=== PATIENT | male | born 1960 | race Caucasian/White ===

== ENCOUNTER 2022-05-23 13:36 | Inpatient (IN) | payer OTHER ==
[2022-05-23] MEDS ORDERED: SODIUM CHLORIDE 0.9% 500 ML 500 ML IV STA (13:40)
[2022-05-23] MEDS ORDERED: Alteplase PER PHARMACY Stroke 1 EACH MISC MISCELLANE PRN (13:45)
[2022-05-23] MEDS ORDERED: ALTEPLASE BOLUS FOR STROKE 8 MG in EMPTY SYRINGE 1 SYR IV STA (13:46)
[2022-05-23] MEDS ORDERED: ALTEPLASE 69 MG in EMPTY BAG 1 BAG IV STA (13:46)
--- NOTE | 2022-05-23 13:58 | CT ---
EXAMINATION TYPE: CT brain wo con for TPA DATE OF EXAM: 05/23/2022 COMPARISON: None HISTORY: Neuro deficit, acute, stroke suspected Unenhanced CT of the brain was performed. The ventricles, basal cisterns and sulci overlying the cerebral convexities demonstrate mild enlargem ent. Areas of remote insult left temporal lobe and left parietal lobe. There is no evidence for intracranial hemorrhage or sulcal effacement. There is decreased attenuation about the periventricular white matter and deep white matter of both c erebral hemispheres, compatible with chronic small vessel ischemia. Differential diagnosis does inclu de demyelination. No mass effects are seen.No midline shift. Osseous calvarium is intact. If symptoms persist consider MRI. IMPRESSION: 1. Age related atrophic and chronic small vessel ischemic change without acute intracranial process s een at this time.
--- NOTE | 2022-05-23 14:00 | ED ---
General Adult HPI - General Stated complaint: Stroke Time Seen by Provider: 05/23/22 13:37 Source: patient, family, EMS, RN notes reviewed, old records reviewed Mode of arrival: EMS Limitations: altered mental status - History of Present Illness Initial comments: 61-year-old male brought in as a priority one stroke activation or at her medics had reported that the patient had acute onset of expressive aphasia and dysarthria at 11:30 AM. Patient was taken immediately to computed tomography scan as a code alteplase. There was no history of medications given at the onset. There was a reported previous stroke history but the exact detail business were not known. After the patient's initial workup was started and I was able to obtain more history from the patient's daughter she's she states that his stroke symptoms are not new. That his speech is normally slurred and he is unable to communicate effectively with an expressive aphasia. He also has right hemiplegia. None of these symptoms are new. What is new today is that the patient was more agitated than usual. He had also complained of a headache. - Related Data Home Medications Medication Instructions Recorded Confirmed No Known Home Medications 05/23/22 05/23/22 Allergies Allergy/AdvReac Type Severity Reaction Status Date / Time No Known Allergies Allergy Unverified 05/23/22 15:33 Review of Systems ROS Statement: Those systems with pertinent positive or pertinent negative responses have been documented in the HPI. ROS Other: All systems not noted in ROS Statement are negative. Past Medical History Additional Past Medical History / Comment(s): CVA History of Any Multi-Drug Resistant Organisms: Unobtainable Past Surgical History: Unable to Obtain Past Psychological History: Unable to Obtain Smoking Status: Unknown if ever smoked Past Alcohol Use History: Unable to Obtain Past Drug Use History: Unable to Obtain General Exam Limitations: altered mental status General appearance: alert, in no apparent distress Head exam: Present: atraumatic, normocephalic Eye exam: Present: normal appearance, PERRL, EOMI ENT exam: Present: normal exam Neck exam: Present: normal inspection. Absent: tenderness, meningismus Respiratory exam: Present: normal lung sounds bilaterally. Absent: respiratory distress, wheezes Cardiovascular Exam: Present: regular rate, normal rhythm GI/Abdominal exam: Present: soft. Absent: distended, tenderness, guarding Neurological exam: Present: alert, motor sensory deficit (Right hemiplegia, expressive aphasia). Absent: oriented X3 Skin exam: Present: warm, dry, intact. Absent: cyanosis, diaphoretic Course Vital Signs 05/23/22 13:55 Temperature 99.3 F Pulse Rate 99 Respiratory 18 Rate Blood Pressure 181/116 O2 Sat by Pulse 94 L Oximetry EKG Findings - EKG Comments: EKG Findings:: EKG: Sinus tachycardia rate of 102, left axis, [place] interval 168, QRS duration 1:30, QTC [address] segment elevation. Medical Decision Making - Medical Decision Making 61-year-old male who is presented initially as a stroke activation. Upon further history from the daughter at the patient has prior stroke with unchanged deficits today. However she states she had been somewhat more agitated than usual. She states his speech is at baseline and is right hemiparesis is at baseline. Given the stability of these findings she is not a TPA candidate and his altered mental status and agitation may not be related to stroke at all. He does receive CT and CT angiography in the emergency department which showed old stroke without acute findings. CBC and CMP are unremarkable. Urinalysis is pending. Patient will benefit from admission for further evaluation and treatme nt. Case discussed with Dr. Aponte. - Lab Data Result diagrams: 05/23/22 14:18 05/23/22 14:18 Lab Results 05/23/22 05/23/22 05/23/22 Range/Units 14:18 14:18 14:18 WBC 10.5 (3.8-10.6) k/uL RBC 5.34 (4.30-5.90) m/uL Hgb 15.6 (13.0-17.5) gm/dL Hct 47.8 (39.0-53.0) % MCV 89.7 (80.0-100.0) fL MCH 29.1 (25.0-35.0) pg MCHC 32.5 (31.0-37.0) g/dL RDW 13.2 (11.5-15.5) % Plt Count 252 (150-450) k/uL MPV 7.9 Neutrophils % 74 % Lymphocytes % 15 % Monocytes % 5 % Eosinophils % 3 % Basophils % 1 % Neutrophils # 7.7 (1.3-7.7) k/uL Lymphocytes # 1.6 (1.0-4.8) k/uL Monocytes # 0.6 (0-1.0) k/uL Eosinophils # 0.4 (0-0.7) k/uL Basophils # 0.1 (0-0.2) k/uL PT 10.2 (9.0-12.0) sec INR 0.9 (<1.2) APTT 25.9 (22.0-30.0) sec Sodium 140 (137-145) mmol/L Potassium 3.5 (3.5-5.1) mmol/L Chloride 104 (98-107) mmol/L Carbon Dioxide 23 (22-30) mmol/L Anion Gap 13 mmol/L BUN 12 (9-20) mg/dL Creatinine 0.71 (0.66-1.25) mg/dL Est GFR (CKD-EPI)AfAm >90 (>60 ml/min/1.73 sqM) Est GFR (CKD-EPI)NonAf >90 (>60 ml/min/1.73 sqM) Glucose 140 H (74-99) mg/dL Calcium 8.7 (8.4-10.2) mg/dL Total Bilirubin 0.4 (0.2-1.3) mg/dL AST 24 (17-59) U/L ALT 19 (4-49) U/L Alkaline Phosphatase 88 (38-126) U/L Troponin I (0.000-0.034) ng/mL Total Protein 6.6 (6.3-8.2) g/dL Albumin 3.8 (3.5-5.0) g/dL 05/23/22 Range/Units 14:18 WBC (3.8-10.6) k/uL RBC (4.30-5.90) m/uL Hgb (13.0-17.5) gm/dL Hct (39.0-53.0) % MCV (80.0-100.0) fL MCH (25.0-35.0) pg MCHC (31.0-37.0) g/dL RDW (11.5-15.5) % Plt Count (150-450) k/uL MPV Neutrophils % % Lymphocytes % % Monocytes % % Eosinophils % % Basophils % % Neutrophils # (1.3-7.7) k/uL Lymphocytes # (1.0-4.8) k/uL Monocytes # (0-1.0) k/uL Eosinophils # (0-0.7) k/uL Basophils # (0-0.2) k/uL PT (9.0-12.0) sec INR (<1.2) APTT (22.0-30.0) sec Sodium (137-145) mmol/L Potassium (3.5-5.1) mmol/L Chloride (98-107) mmol/L Carbon Dioxide (22-30) mmol/L Anion Gap mmol/L BUN (9-20) mg/dL Creatinine (0.66-1.25) mg/dL Est GFR (CKD-EPI)AfAm (>60 ml/min/1.73 sqM) Est GFR (CKD-EPI)NonAf (>60 ml/min/1.73 sqM) Glucose (74-99) mg/dL Calcium (8.4-10.2) mg/dL Total Bilirubin (0.2-1.3) mg/dL AST (17-59) U/L ALT (4-49) U/L Alkaline Phosphatase (38-126) U/L Troponin I 0.018 (0.000-0.034) ng/mL Total Protein (6.3-8.2) g/dL Albumin (3.5-5.0) g/dL Disposition Clinical Impression: Altered mental status, Cerebrovascular accident (CVA) Disposition: ADMITTED IP TO THIS HOSP Condition: Stable Is patient prescribed a controlled substance at d/c from ED?: No Referrals: None,Stated [Primary Care Provider] - 1-2 days Time of Disposition: 16:00
[2022-05-23 14:30] LABS: Basophils # (A) 0.1 k/uL (0-0.2); Basophils % (A) 1 %; Eosinophils # (A) 0.4 k/uL (0-0.7); Eosinophils % (A) 3 %; HCT 47.8 % (39.0-53.0); HGB 15.6 gm/dL (13.0-17.5); Lymphocytes # (A) 1.6 k/uL (1.0-4.8); Lymphocytes % (A) 15 %; MCH 29.1 pg (25.0-35.0); MCHC 32.5 g/dL (31.0-37.0); MCV 89.7 fL (80.0-100.0); Mean Platelet Volume 7.9; Monocytes # (A) 0.6 k/uL (0-1.0); Monocytes % (A) 5 %; Neutrophils # (A) 7.7 k/uL (1.3-7.7); Neutrophils % (A) 74 %; Platelet Count 252 k/uL (150-450); RBC 5.34 m/uL (4.30-5.90); RDW 13.2 % (11.5-15.5); WBC 10.5 k/uL (3.8-10.6)
[2022-05-23 14:38] LABS: ALT 19 U/L (4-49); AST 24 U/L (17-59); African American GFR (CKD) >90 (>60 ml/min/1.73 sqM); Albumin 3.8 g/dL (3.5-5.0); Alkaline Phosphatase 88 U/L (38-126); Anion Gap 13 mmol/L; Blood Urea Nitrogen 12 mg/dL (9-20); Calcium 8.7 mg/dL (8.4-10.2); Carbon Dioxide 23 mmol/L (22-30); Chloride 104 mmol/L (98-107); Glucose 140 mg/dL (74-99); Non-African American GFR(CKD) >90 (>60 ml/min/1.73 sqM); Sodium 140 mmol/L (137-145); Total Bilirubin 0.4 mg/dL (0.2-1.3); Total Protein 6.6 g/dL (6.3-8.2)
[2022-05-23 14:39] LABS: Potassium 3.5 mmol/L (3.5-5.1)
[2022-05-23 14:42] LABS: INR 0.9 (<1.2); Partial Thromboplastin Time 25.9 sec (22.0-30.0); Prothrombin Time 10.2 sec (9.0-12.0)
[2022-05-23] MEDS ORDERED: SODIUM CHLORIDE 0.9% 50 ML MINI-BAG IV ONE (14:45)
--- NOTE | 2022-05-23 14:53 | CT ---
EXAMINATION TYPE: CT angio head neck DATE OF EXAM: 05/23/2022 HISTORY: altered mental status COMPARISON: CT DLP: 504.7 mGycm. Automated Exposure Control for Dose Reduction was Utilized. TECHNIQUE: CTA scan of the neck is performed with IV Contrast, patient injected with 65 mL of Isovue 370, axial images are obtained, coronal and sagittal reformatted images are reviewed. Three-D recons tructed images are created on an independent workstation and reviewed. Source images are reviewed. FINDINGS: Carotid/Vascular Structures: There is a three-vessel arch. Vertebral arteries are codominant. No sign ificant stenosis of the internal carotid artery bifurcations is evident. There is plaquing on the lef t internal carotid arteries are patent to the skull base. Cervical of [place]: Vertebral basilar system appears normal. Posterior cerebral vasculature is unrema rkable. Internal carotid arteries bifurcate normally into A1 and M1 segments. A2 segments appear norm al. The left M1 segment appears to terminate near the area of hypodensity left middle cerebral artery . Marked Compatible with patient's apparent prior infarct. Right middle cerebral artery branches appe ar normal. Posterior cerebral vasculature is normal. Small posterior communicating arteries appear to be present. IMPRESSION: 1. No flow-limiting stenosis bilateral carotid bifurcations. Plaquing is noted on the left. 2. Left M2 segments appear truncated compatible with prior infarct in this region. 3. [place] otherwise appears within normal limits. NASCET criteria was used in interpretation of this exam?
[2022-05-23] MEDS ORDERED: SODIUM CHLORIDE 0.9% 500 ML 500 ML IV ONE (15:09)
--- NOTE | 2022-05-23 15:43 | XR ---
EXAMINATION TYPE: XR chest 2V DATE OF EXAM: 05/23/2022 COMPARISON: None INDICATION: Altered mental status TECHNIQUE: Frontal and lateral views of the chest are obtained. FINDINGS: The heart size is normal. The pulmonary vasculature is normal. The lungs are clear. IMPRESSION: 1. No acute pulmonary process.
[2022-05-23] MEDS ORDERED: ASPIRIN 325 MG TAB PO STA (15:51)
[2022-05-23] MEDS ORDERED: ACETAMINOPHEN TAB 325 MG TAB PO PRN (15:56)
[2022-05-23] MEDS ORDERED: SODIUM CHLORIDE 0.9% 1,000 ML IV SCH (16:00)
[2022-05-23] MEDS ORDERED: LABETALOL 5 MG/ML VIAL MDV IVP STA (16:15)
--- NOTE | 2022-05-23 16:41 | P.HPIM ---
History of Present Illness H&P Date: 05/23/22 Chief Complaint: AMS Patient is a 61-year-old male with PMH of CVA with right-sided residual weakness, dysarthria and expressive aphasia presents to the ED for worsening agitation and headache. Patient is unable to communicate effectively due to his dysarthria and expressive aphasia and majority of documentation is obtained from charting. Patient was brought in as a CODE STROKE by EMS for acute onset expressive aphasia and dysarthria at 11:30AM. However, after ED physician discussed with the case with the daughter, it was determined that these were not new symptoms. Daughter had mentioned that patient was complaining of a headache and appeared for agitated than usual. In the ED, he was noted to have a BP of 181/116, pulse of 99. CBC was unremarkable. Coagulation panel negative. CMP showed glucose 140. Troponin was 0.018 with EKG showing sinus tachycardia. CT brain showed age-related atrophic and chronic small vessel ischemic changes without acute intracranial process. CTA head and neck was negative for flow-limiting stenosis of the carotids. Chest x-ray was negative. Patient is admitted for Neurology evaluation and hypertensive urgency. Unable to perform review of system due to patient's clinical state. General: [non toxic], [no distress], [appears at stated age] Derm: [warm], [dry] Head: [atraumatic], [normocephalic], [symmetric] Eyes: [EOMI], [no lid lag], [anicteric sclera] Mouth: [no lip lesion], [mucus membranes moist] Cardiovascular: [Tachycardic], [no murmur], [positive DP pulse bilateral] Lungs: [CTA bilateral], [no rhonchi, no rales] , [no accessory muscle use] Abdominal: [soft], [ nontender to palpation], [no guarding], [no appreciable organomegaly] Ext: [no gross muscle atrophy], [no edema], [no contractures] Neuro: [Limited due to patient's clinical state. Slurred speech. RUE contractured, 0-5 strength. RLE 3/5 strength. OSMAR and LLE 5/5 strength.] Psych: [Unable to perform] #Hypertensive urgency #Altered mental status #History of CVA Patient presents with increased agitation and headache. He has slurred speech, dysarthria and expressive aphasia that is not new according to the daughter. Initially, CODE STROKE was called. Alteplase was NOT given. He did recieve 325 mg of ASA by mouth. He will be started on aspirin 81 mg by mouth daily along with Lipitor 80 mg by mouth at bedtime. Telemetry monitoring will be ordered. Echocardiogram and MRI brain is ordered. Advanced neurochecks ordered. Hemoglobin A1c and lipid panel ordered. Fall precautions ordered. Neurology will be consulted for further management of this patient. Patient with elevated BP in the 180s over 110s. Repeat BP 170s over 110s. We will give labetalol 20 mg IV STAT. We'll start the patient on amlodipine 5 mg by mouth daily, lisinopril 10 mg by mouth daily and hydralazine 20 mg by mouth 4 times a day as needed for SBP greater than 160. Check vital signs every 4 hours. PT/OT/ST has also been consulted. DVT prophylaxis: [Heparin] Discussed with: [Patient, ED physician] Anticipated discharge: [2 days] Anticipated discharge place: [Home] A total of [35] minutes was spent on the care of this complex patient more than 50% of the time was spent in counseling and care coordination. Patient will be placed FULL CODE. Past Medical History Additional Past Medical History / Comment(s): CVA History of Any Multi-Drug Resistant Organisms: Unobtainable Past Surgical History: Unable to Obtain Past Psychological History: Unable to Obtain Smoking Status: Unknown if ever smoked Past Alcohol Use History: Unable to Obtain Past Drug Use History: Unable to Obtain Medications and Allergies Home Medications Medication Instructions Recorded Confirmed Type No Known Home Medications 05/23/22 05/23/22 History Allergies Allergy/AdvReac Type Severity Reaction Status Date / Time No Known Allergies Allergy Unverified 05/23/22 15:33 Physical Exam Vitals: Vital Signs Temp Pulse Resp BP Pulse Ox 05/23/22 13:55 99.3 F 99 18 181/116 94 L Intake and Output 05/23/22 05/23/22 05/23/22 06:59 14:59 22:59 Other: Weight 85.548 kg Results CBC & Chem 7: 05/23/22 14:18 05/23/22 14:18 Labs: Abnormal Lab Results - Last 24 Hours (Table) 05/23/22 Range/Units 14:18 Glucose 140 H (74-99) mg/dL
[2022-05-23] MEDS: amLODIPine 5 MG TAB PO SCH (16:53)
[2022-05-23] MEDS: lisinopriL 10 MG TAB PO SCH (16:53)
[2022-05-23] MEDS: hydrALAZINE HCL 25 MG TAB PO PRN (20:04)
[2022-05-23] MEDS: ATORVASTATIN 80 MG TAB PO SCH (21:48)
[2022-05-23] MEDS: HEPARIN SODIUM,PORCINE/PF 5,000 UNIT/0.5 ML SYRINGE SQ SCH (21:49)
[2022-05-24] MEDS: amLODIPine 5 MG TAB PO SCH (08:29)
[2022-05-24] MEDS: lisinopriL 10 MG TAB PO SCH (08:29)
[2022-05-24] MEDS: HEPARIN SODIUM,PORCINE/PF 5,000 UNIT/0.5 ML SYRINGE SQ SCH ×2 (08:30→20:20)
[2022-05-24] MEDS ORDERED: ASPIRIN 325 MG TAB PO SCH (09:00)
[2022-05-24] MEDS ORDERED: ASPIRIN 81 MG PO SCH (09:00)
[2022-05-24 09:51] LABS: LDL Cholesterol,Calculated 89.6 mg/dL (0.0-131.0)
--- NOTE | 2022-05-24 13:06 | P.CNNES ---
History of Present Illness Consult date: 05/24/22 History of Present Illness: The patient is a 61-year-old male who is seen in neurologic consultation on May 24, 2022, via teleneurology. History is obtained entirely from the chart, as the patient is unable to communicate. According to the history and physical and the emergency department notes, the patient was brought into the hospital by his daughter with complaints of headache and he was also reportedly more agitated. The patient has a history of a previous stroke with residual right-sided weakness, expressive aphasia and dysarthria. Workup in the emergency department involved a CT angiogram of head and neck. There is no evidence of significant stenosis or large vessel occlusion. The patient also had a CT scan of the brain which revealed no signs of acute hemorrhage or infarct. CT scan of the brain did reveal evidence of the patient's previous, large, left middle cerebral artery territory infarction. These images were personally reviewed. Review of Systems Unable to obtain secondary to expressive aphasia and dysarthria Past Medical History Additional Past Medical History / Comment(s): CVA 2020 History of Any Multi-Drug Resistant Organisms: Unobtainable Past Surgical History: Unable to Obtain Past Anesthesia/Blood Transfusion Reactions: No Reported Reaction Past Psychological History: Unable to Obtain Smoking Status: Current every day smoker, Unknown if ever smoked Past Alcohol Use History: None Reported Past Drug Use History: None Reported Medications and Allergies Home Medications Medication Instructions Recorded Confirmed Type No Known Home Medications 05/23/22 05/23/22 History Allergies Allergy/AdvReac Type Severity Reaction Status Date / Time No Known Allergies Allergy Unverified 05/23/22 15:33 Physical Examination - Vital Signs Vital Signs: Vital Signs Temp Pulse Pulse Resp BP BP Pulse Ox 05/24/22 08:28 63 16 146/83 97 05/24/22 04:00 96.9 F L 68 20 158/90 98 05/24/22 00:00 97.7 F 75 18 113/70 97 05/23/22 21:12 98.0 F 72 18 168/100 97 05/23/22 20:45 98.0 F 72 22 168/100 97 05/23/22 19:56 97.3 F L 71 16 163/106 96 05/23/22 19:00 75 18 159/130 96 05/23/22 18:00 74 18 139/83 05/23/22 17:34 85 18 144/105 98 05/23/22 17:00 82 18 179/110 98 05/23/22 16:48 92 18 172/112 97 05/23/22 15:30 90 18 176/102 98 05/23/22 13:55 99.3 F 99 18 181/116 94 L Intake and Output 05/23/22 05/24/22 05/24/22 22:59 06:59 14:59 Other: Voiding Method Diaper Diaper Diaper Incontinent Incontinent Incontinent # Voids 1 2 Weight 85.548 kg Gen.: The patient is seated in the bedside chair. He is well-nourished, well- developed and in no acute distress. HEENT: Head is atraumatic, normocephalic. Fundus not visualized. There is no scleral icterus. Mucous membranes are moist. Neck: Supple without carotid bruits Heart: Regular rate and rhythm Extremities: Without edema Neurological examination Mental status: The patient intermittently follows commands. His speech is unintelligible. He is not speaking words however, does not appear to realize he is not speaking words. Cranial nerves: Pupils are equal at 3 mm and reactive. Visual field testing is difficult to accurately assess. Extraocular movements are grossly intact. There is a right facial droop. Other cranial nerves are unable to be accurately assessed secondary to lack of cooperation of the patient Motor: There is right sided hemiplegia and spasticity, worse in the arm than the leg. Left upper and lower extremity strength appears to be full however, the patient has difficulty following instructions for strength testing Coordination: Unable to be assessed Deep tendon reflexes: 3+/4+ in the right upper and lower extremities. 2+/4+ in the left upper and lower extremities. Sensation: Grossly intact Gait: Not assessed Results - Laboratory Findings CBC and BMP: 05/23/22 14:18 05/23/22 14:18 Abnormal Lab Findings: Abnormal Labs 05/23/22 14:18 Glucose 140 H Assessment and Plan Assessment: 1. Hypertensive urgency-this may also be an etiology for the patient's headache and agitation 2. Reported history of left middle cerebral artery territory infarction with right hemiplegia, expressive aphasia and dysarthria, at baseline. Per ER notes, the daughter reports that the patient's neurologic deficits are currently at baseline. On my evaluation, there also appears to be a component of receptive a aphasia 3. Await urinalysis results as an infection can also contribute to increased neurologic deficits 4. Elevated triglycerides 5. MRI of the brain should be assessed for possible recurrent stroke in same vascular territory Plan: 1. Stroke orders including 2-D echocardiogram, PT, OT and speech therapy consultations. 2. Lipid panel, hemoglobin A1c and TSH should be checked 3. The patient should be started on aspirin and Plavix and a high-dose statin for further stroke prevention Thank you for allowing us to participate in the care of this patient Time with Patient: Greater than 30 (spent 35 minutes with the patient via telemedicine)
--- NOTE | 2022-05-24 13:16 | MR ---
EXAMINATION TYPE: MR brain wo con DATE OF EXAM: 05/24/2022 COMPARISON: CT 05/23/2022 HISTORY: 61-year-old male CVA, Aphasia TECHNIQUE: Multiplanar, multisequence images of the brain and brainstem were acquired without IV con trast. Diffusion weighted imaging is performed. FINDINGS: Encephalomalacia along the left MCA territory distribution with a associated chronic T2 bright white matter change compatible with gliosis. On the right, moderate patchy and confluent bright white matte r changes noted. Corresponding bright white matter change extending down the left side of the brainst em. Mild to moderate ventriculomegaly likely reflecting central cerebral atrophy. No evidence for acute infarction, mass, mass effect, midline shift, herniation, effacement of basal c isterns, or extra-axial fluid collection. Midline structures demonstrate normal morphology. The craniocervical junction is normal. Moderate to severe mucosal thickening ethmoid air cells. Mild mucosal thickening in frontal sinuses. There is a tiny 5 mm right paramedian superior calvarial lesion, possible prominent arachnoid granula tion are small intraosseous hemangioma. IMPRESSION: 1. Large, remote infarct involving the left MCA territory. Associated encephalomalacia and gliosis. D WI shows no acute intracranial abnormality. 2. Moderate generalized atrophy and background moderate burden of chronic small vessel ischemic disea se. 3. Moderate to severe chronic ethmoid sinus disease.
--- NOTE | 2022-05-24 13:19 | P.PN ---
Subjective Progress Note Date: 05/24/22 Patient was seen and examined. No acute events overnight. Patient reports improvement in his headache. Communication is limited due to his expressive aphasia and dysarthria. Appears to be comfortable. General: [non toxic], [no distress], [appears at stated age] Derm: [warm], [dry] Head: [atraumatic], [normocephalic], [symmetric] Eyes: [EOMI], [no lid lag], [anicteric sclera] Mouth: [no lip lesion], [mucus membranes moist] Cardiovascular: [Normal S1 S2], [no murmur], [positive DP pulse bilateral] Lungs: [CTA bilateral], [no rhonchi, no rales] , [no accessory muscle use] Abdominal: [soft], [ nontender to palpation], [no guarding], [no appreciable organomegaly] Ext: [no gross muscle atrophy], [no edema], [no contractures] Neuro: [Limited due to patient's clinical state. Slurred speech. RUE co ntractured, 0-5 strength. RLE 3/5 strength. OSMAR and LLE 5/5 strength.] Psych: [Unable to perform] #Hypertensive urgency #Altered mental status #History of CVA Patient presents with increased agitation and headache. He has slurred speech, dysarthria and expressive aphasia that is not new according to the daughter. Initially, CODE STROKE was called. Alteplase was NOT given. He did recieve 325 mg of ASA by mouth. Continue Lipitor 80 mg by mouth at bedtime. Stop ASA and start Plavix 75 mg PO QD. Telemetry monitoring will be ordered. Echocardiogram and MRI brain is pending. Advanced neurochecks ordered Fall precautions ordered. Neurology on board. Urinalaysis ordered to rule out infectious cause of agitation. Patient with elevated BP in the 180s over 110s. Repeat BP 170s over 110s. We will give labetalol 20 mg IV STAT. We'll increase Amlodipine to 10 mg by mouth daily, lisinopril 10 mg by mouth daily and hydralazine 20 mg by mouth 4 times a day as needed for SBP greater than 160. Check vital signs every 4 hours. PT/OT/ST has also been consulted. DVT prophylaxis: [Heparin] Discussed with: [Patient] Anticipated discharge: [2 days] Objective - Vital Signs Vital signs: Vital Signs Temp 96.9 F L 05/24/22 04:00 Pulse 77 05/24/22 11:15 Resp 16 05/24/22 11:15 BP 133/66 05/24/22 11:15 Pulse Ox 94 L 05/24/22 11:15 FiO2 Intake & Output 05/23/22 05/24/22 05/24/22 18:59 06:59 18:59 Intake Total 360 Balance 360 Weight 85.548 kg 85.548 kg Intake: Oral 360 Other: Voiding Method Diaper Diaper Incontinent Incontinent # Voids 2 1 - Labs CBC & Chem 7: 05/23/22 14:18 05/23/22 14:18 Labs: Abnormal Lab Results - Last 24 Hours (Table) 05/23/22 05/23/22 Range/Units 14:18 14:18 Glucose 140 H (74-99) mg/dL Triglycerides 187.00 H (0.00-149.00) mg/dL
--- NOTE | 2022-05-24 15:30 | CA ---
Transthoracic Echo Report Name: Juan Walton Age: 61 Gender: M : 1960 Exam Date: 05/24/2022 08:57 Exam Location: [place] [facility] Ht (in): 73 Wt (lb): 188 Ordering Physician: Josette Ybarra MD Attending/Referring Phys: Credit Control Clerk Lucia Osorio RDCS Procedure CPT: Indications: TIA vs CVA Cardiac Hx: Technical Quality: Technically difficult study Contrast 1: Lumason Total Dose (mL): 4 Contrast 2: Total Dose (mL): MEASUREMENTS (Male / Female) Normal Values 2D ECHO LV Diastolic Diameter PLAX 4.1 cm 4.2 - 5.9 / 3.9 - 5.3 cm LV Systolic Diameter PLAX 3.0 cm IVS Diastolic Thickness 1.6 cm 0.6 - 1.0 / 0.6 - 0.9 cm LVPW Diastolic Thickness 1.5 cm 0.6 - 1.0 / 0.6 - 0.9 cm LV Relative Wall Thickness 0.7 DOPPLER AV Peak Velocity 114.0 cm/s AV Peak Gradient 5.2 mmHg LVOT Peak Velocity 95.6 cm/s LVOT Peak Gradient 3.7 mmHg MV Area PHT 2.7 cm??? Mitral E Point Velocity 55.7 cm/s Mitral A Point Velocity 72.3 cm/s Mitral E to A Ratio 0.8 MV Deceleration Time 277.5 ms TR Peak Velocity 225.2 cm/s TR Peak Gradient 20.3 mmHg Right Ventricular Systolic Press 25.3 mmHg FINDINGS Left Ventricle Moderately increased left ventricular wall thickness. Normal Left ventricular size, systolic function with no obvious regional wall motion abnormalities. Normal Left ventricular diastolic filling pattern. Left ventricular ejection fraction is estimated at 55-60 %. Right Ventricle Normal right ventricular size and function. Right ventricular systolic pressure within normal limits. Right Atrium Normal right atrial size. Left Atrium Normal left atrial size. Mitral Valve Structurally normal mitral valve. No mitral stenosis, regurgitation or prolapse. Aortic Valve Aortic valve not well visualized. No aortic valve stenosis or regurgitation. Tricuspid Valve Structurally normal tricuspid valve. Mild tricuspid regurgitation. Pulmonic Valve Trace pulmonic regurgitation.pulmonic valve not well visualized. Pericardium No pericardial effusion. Aorta Normal size aortic root and proximal ascending aorta. CONCLUSIONS 1. Technically difficult study 2. Normal left ventricular size and function 3. Mild tricuspid regurgitation Previewed by: Dr. Lydia Prather MD (Electronically Signed) Final Date: 24 May 2022 15:29
[2022-05-24] MEDS: ATORVASTATIN 80 MG TAB PO SCH (20:20)
[2022-05-25] MEDS: HEPARIN SODIUM,PORCINE/PF 5,000 UNIT/0.5 ML SYRINGE SQ SCH ×2 (08:00→20:22)
[2022-05-25] MEDS: amLODIPine 10 MG TAB PO SCH (08:00)
[2022-05-25] MEDS: lisinopriL 10 MG TAB PO SCH (08:00)
[2022-05-25] MEDS: CLOPIDOGREL 75 MG TAB PO SCH (08:02)
--- NOTE | 2022-05-25 12:06 | P.PN ---
Subjective Progress Note Date: 05/25/22 Patient was seen and examined. No acute events overnight. Patient denies headache. Communication is limited due to his expressive aphasia and dysarthria. Appears to be comfortable. General: [non toxic], [no distress], [appears at stated age] Derm: [warm], [dry] Head: [atraumatic], [normocephalic], [symmetric] Eyes: [EOMI], [no lid lag], [anicteric sclera] Mouth: [no lip lesion], [mucus membranes moist] Cardiovascular: [Normal S1 S2], [no murmur], [positive DP pulse bilateral] Lungs: [CTA bilateral], [no rhonchi, no rales] , [no accessory muscle use] Ext: [no gross muscle atrophy], [no edema], [no contractures] Neuro: [Limited due to patient's clinical state. Slurred speech. RUE contractured, 0-5 strength. RLE 3/5 strength. OSMAR and LLE 5/5 strength.] Psych: [Unable to perform] #Hypertensive urgency #Altered mental status #History of CVA Patient presents with increased agitation and headache. He has slurred speech, dysarthria and expressive aphasia that is not new according to the daughter. Initially, CODE STROKE was called. Alteplase was NOT given. He did recieve 325 mg of ASA by mouth. Continue Lipitor 80 mg by mouth at bedtime. Continue Plavix 75 mg PO QD. Telemetry monitoring will be ordered. MRI brain shows a large remote infarct involving the MCA territory. Echocardiogram shows EF 55-60% with no regional wall motion abnormalities. Advanced neurochecks ordered Fall precautions ordered. Neurology on board. Urinalaysis ordered to rule out infectious cause of agitation. Patient with elevated BP in the 180s over 110s. Repeat BP 170s over 110s. We will give labetalol 20 mg IV STAT. Continue Amlodipine 10 mg by mouth daily, increase lisinopril to 20 mg by mouth daily and hydralazine 20 mg by mouth 4 times a day as needed for SBP greater than 160. Check vital signs every 4 hours. PT/OT/ST has also been consulted. DVT prophylaxis: [Heparin] Discussed with: [Patient] Anticipated discharge: [2 days] Anticipate DC home today if able to get Neurology clearance. Patient appears to be at baseline. Objective - Vital Signs Vital signs: Vital Signs Temp 97.1 F L 05/25/22 07:53 Pulse 75 05/25/22 11:38 Resp 18 05/25/22 11:38 BP 154/89 05/25/22 11:38 Pulse Ox 95 05/25/22 11:38 FiO2 Intake & Output 05/24/22 05/25/22 05/25/22 18:59 06:59 18:59 Intake Total 960 485 Balance 960 485 Intake: Oral 960 485 Other: Voiding Method Diaper Diaper Diaper Incontinent Incontinent Incontinent # Voids 1 1 - Labs CBC & Chem 7: 05/23/22 14:18 05/23/22 14:18
[2022-05-25] MEDS: carvediloL 3.125 MG TAB PO SCH (17:54)
[2022-05-25] MEDS: hydrALAZINE HCL 25 MG TAB PO PRN (20:22)
[2022-05-25] MEDS: ATORVASTATIN 80 MG TAB PO SCH (20:22)
[2022-05-26] MEDS: carvediloL 3.125 MG TAB PO SCH (06:37)
[2022-05-26] MEDS ORDERED: lisinopriL 20 MG TAB PO SCH (09:00)
[2022-05-26 09:04] VITALS: RESP 18; TEMP 97.4
[2022-05-26] MEDS: CLOPIDOGREL 75 MG TAB PO SCH (09:07)
[2022-05-26] MEDS: HEPARIN SODIUM,PORCINE/PF 5,000 UNIT/0.5 ML SYRINGE SQ SCH (09:07)
[2022-05-26] MEDS: amLODIPine 10 MG TAB PO SCH (09:07)
--- NOTE | 2022-05-26 10:11 | P.DS ---
Providers Date of admission: 05/23/22 15:56 Expected date of discharge: 05/26/22 Attending physician: Itzel Aponte MD Consults: 05/23/22 15:57 Consult Physician Routine Consulting Provider: Mary Back Consult Reason/Comments: CVA hx, AMS Do you want consulting provider notified?: Yes Primary care physician: Stated None Hospital Course: Discharge Diagnosis: Hypertensive urgency, improved. Patient being discharged home with prescriptions for carvedilol 3.125 mg twice daily with meals, amlodipine 10 mg daily, and lisinopril 20 mg daily. It was recommended for monitoring of blood pressure twice a day once in the morning and once in the evening and to record these results in a daily log/journal to bring to next doctor's appointment. History of CVA. Aspirin was stopped and patient started on Plavix 75 mg daily. Nicotine dependence, recommend smoking cessation. Hospital Course: Patient is a 61-year-old male with a history of CVA with right-sided residual deficits as well as dysarthria and expressive aphasia. He presented to the ED on 05/23/22 with a chief complaint of worsening agitation and headache. Patient underwent full evaluation and workup for hypertensive urgency and for concerns of possible CVA. Upon arrival to our facility patient was found to have hypert ensive urgency with blood pressure 181/116. Patient was admitted under our services with consultation to neurology. CT brain negative for acute intercranial process revealing age-related atrophic and chronic small vessel ischemic changes. CTA head and neck negative for acute intercranial process and negative for flow-limiting stenosis bilaterally, and left M2 segments appeared truncated compatible with prior infarct in this region. EKG showing sinus tachycardia at 102 bpm. Echocardiogram revealing normal EF 55-60% with mild tricuspid regurgitation. MRI showing old large remote infarct involving the left MCA territory associated with encephalomalacia and gliosis. Acute CVA was ruled out. Hypertension better controlled. Neurology recommending patient to continue Plavix and atorvastatin and follow up outpatient with neurology. Patient is medically stable for discharge home with family at this time. It was recommended for monitoring of blood pressure twice a day once in the morning and once in the evening and to record these results in a daily log/journal to bring to next doctor's appointment. Patient discharged home on Coreg, Lipitor, Norvasc, Zestril, and Plavix. Patient to follow-up outpatient with PCP, cardiology, and neurology. Physical examination: Vital signs reviewed and stable. General: Nontoxic, no distress and appears stated age. Derm: Skin warm and dry, normal coloration for ethnicity. Head: Atraumatic, normocephalic and symmetric. Eyes: EOMs intact, no lid lag, and anicteric sclera Mouth: no lip lesions, mucus membranes moist Cardiovascular: regular rate and rhythm with normal S1S2, no murmur, positive posterior tibial pulses bilaterally, and cap refill < 2 seconds. Lungs: Respirations even, regular, and unlabored on room air. Lungs CTA bilaterally, no rhonchi, no rales, no wheezing, and no accessory muscle usage. Abdominal: soft, nontender to palpation, no guarding, no appreciable organomegaly Ext: ROM intact. No gross muscle atrophy, no edema, no contractures Neuro: Right upper extremity contracted and Right lower extremity weakness. Left upper and lower extremity 5 out of 5 strength. Psych: Alert, cooperative and Appropriate with pleasant affect. A total of 37 minutes of time were spent preparing this complex discharge summary. Pt was discharged on 05/26/22 at 9:59 AM. I reviewed the documentation as provided by the MADHAVI above, who is the original author of this note. I agree with the documented assessment and plan, with the following changes: none Patient Condition at Discharge: Stable Plan - Discharge Summary Discharge Rx Participant: No New Discharge Prescriptions: New carvediloL [Coreg] 3.125 mg PO BID-W/MEALS 30 Days #30 tab Atorvastatin [Lipitor] 80 mg PO HS 30 Days #30 tab amLODIPine [Norvasc] 10 mg PO DAILY 30 Days #30 tab lisinopriL [Zestril] 20 mg PO DAILY 30 Days #30 tab Clopidogrel [Plavix] 75 mg PO DAILY 30 Days #30 tab Discharge Medication List Atorvastatin [Lipitor] 80 mg PO HS 30 Days #30 tab 05/26/22 [Rx] Clopidogrel [Plavix] 75 mg PO DAILY 30 Days #30 tab 05/26/22 [Rx] amLODIPine [Norvasc] 10 mg PO DAILY 30 Days #30 tab 05/26/22 [Rx] carvediloL [Coreg] 3.125 mg PO BID-W/MEALS 30 Days #30 tab 05/26/22 [Rx] lisinopriL [Zestril] 20 mg PO DAILY 30 Days #30 tab 05/26/22 [Rx] Follow up Appointment(s)/Referral(s): Ronny Pride MD [REFERRING] - 1 Week (office will call to make appointment ) Ricki Hampton MD [STAFF PHYSICIAN] - 1 Week (office will contact you to make appointment ) Nir Kat MD [STAFF PHYSICIAN] - 1 Week (please call and make appointment ) Activity/Diet/Wound Care/Special Instructions: Activity: As tolerated. Take breaks as needed. Diet: Heart healthy and carb consistent diet. Avoid salts, or foods with hidden salts such as canned or boxed foods and frozen dinners. Extra salt makes your heart work harder and traps the fluid in your body for longer. Special Instructions: Take all of your medications as directed and remember to keep all of your doctor's appointments and follow-up as needed. It is strongly recommended to take prescribed medications as directed. It is also important to assess blood pressure twice a day once in the morning and once in the evening. Record these results in a daily log/Journal and bring these with you to next doctor's appointment so adjustments with your daily medication regimen can be made as needed. Thank you for allowing us to participate in your care, it was truly a pleasure having you for our patient!!! Discharge Disposition: HOME SELF-CARE
[2022-05-26 11:50] VITALS: BP 157/97; PULSE 84
== END 2022-05-26 13:52 | disposition home or self-care (01) | DRG 305 ==
LOC: EC 13:36 → 3SCARD 15:56
PROVIDERS: ADMIT Internal Medicine; ATTEND Internal Medicine
DX: I16.0 Hypertensive urgency (principal); I69.351 Hemiplegia and hemiparesis following cerebral infarction affecting right dominant side; G93.89 Other specified disorders of brain; E78.1 Pure hyperglyceridemia; F17.210 Nicotine dependence, cigarettes, uncomplicated; I07.1 Rheumatic tricuspid insufficiency; R47.1 Dysarthria and anarthria; I10 Essential (primary) hypertension; I69.320 Aphasia following cerebral infarction; R45.1 Restlessness and agitation; Z79.82 Long term (current) use of aspirin; Z79.899 Other long term (current) drug therapy
CPT/HCPCS: 36415; 70450; 70496; 70498; 70551; 71046; 80053; 80061; 83036; 84484; 85025; 85610; 85730; 93005; 93306; 96361; 96374; 99285

== ENCOUNTER 2025-04-29 10:35 | Observation (INO) | payer OTHER ==
--- NOTE | 2025-04-29 11:11 | ED ---
General Adult HPI - General Chief complaint: Abdominal Pain Stated complaint: Abd Pain Time Seen by Provider: 04/29/25 10:49 Source: patient, EMS, RN notes reviewed Mode of arrival: EMS Limitations: language barrier, physical limitation - History of Present Illness Initial comments: This is a 64-year-old male with a reported history of CVA with subsequent right- sided deficits and aphasia presenting to the emergency department via EMS for reported complaints of abdominal pain. History is extremely limited directly from the patient as his aphasia is severe therefore family at bedside provides majority of history. Patient lives with his older sister and his niece, his sister's daughter, who take care of him at home. Sister reports that the patient was having left-sided weakness this morning and it appeared that he was having pain with movement of his left arm and his leg. They also reports that patient has been holding his abdomen intermittently over the past few days. They deny recent falls or injuries. Denies diarrhea or vomiting. Patient is holding his right side of his abdomen endorsing pain over the past few days. - Related Data Home Medications Medication Instructions Recorded Confirmed lisinopriL 40 mg PO DAILY 04/29/25 04/29/25 Previous Rx's Medication Instructions Recorded Atorvastatin [Lipitor] 80 mg PO HS 30 Days #30 tab 05/26/22 amLODIPine [Norvasc] 10 mg PO DAILY 30 Days #30 tab 05/26/22 Allergies Allergy/AdvReac Type Severity Reaction Status Date / Time No Known Allergies Allergy Verified 04/29/25 15:26 Review of Systems ROS Statement: Those systems with pertinent positive or pertinent negative responses have been documented in the HPI. ROS Other: All systems not noted in ROS Statement are negative. Past Medical History Additional Past Medical History / Comment(s): CVA 2020 History of Any Multi-Drug Resistant Organisms: Unobtainable Past Surgical History: Unable to Obtain Past Anesthesia/Blood Transfusion Reactions: No Reported Reaction Past Psychological History: Unable to Obtain Smoking Status: Current every day smoker, Unknown if ever smoked Past Alcohol Use History: None Reported Past Drug Use History: None Reported General Exam Limitations: language barrier, physical limitation Eye exam: Present: normal appearance, PERRL, EOMI. Absent: scleral icterus, conjunctival injection, periorbital swelling Neck exam: Present: normal inspection. Absent: tenderness, meningismus, lymphadenopathy Respiratory exam: Present: normal lung sounds bilaterally. Absent: respiratory distress, wheezes, rales, rhonchi, stridor Cardiovascular Exam: Present: regular rate, normal rhythm, normal heart sounds. Absent: systolic murmur, diastolic murmur, rubs, gallop, clicks GI/Abdominal exam: Present: soft, normal bowel sounds. Absent: distended, tenderness, guarding, rebound, rigid Extremities exam: Present: normal inspection, full ROM, normal capillary refill. Absent: tenderness, pedal edema, joint swelling, calf tenderness Neurological exam: Present: alert. Absent: oriented X3 Course Vital Signs 04/29/25 04/29/25 04/29/25 10:38 13:37 14:55 Temperature 99.2 F Pulse Rate 91 88 112 H Respiratory 18 18 20 Rate Blood Pressure 127/87 O2 Sat by Pulse 95 95 Oximetry Medical Decision Making - Medical Decision Making Was pt. sent in by a medical professional or institution (ADELAIDE Brewer, SPLITTING MACHINE OPERATOR, urgent care, hospital, or [facility]...) When possible be specific @ -No Did you speak to anyone other than the patient for history (EMS, parent, family, police, friend...)? What history was obtained from this source @ -No Did you review nursing and triage notes (agree or disagree)? Why? @ -I reviewed and agree with nursing and triage notes Were old charts reviewed (outside hosp., previous admission, EMS record, old EKG, old radiological studies, urgent care reports/EKG's, [facility] records)? Report findings @ -No old charts were reviewed Differential Diagnosis (chest pain, altered mental status, abdominal pain women, abdominal pain men, vaginal bleeding, weakness, fever, dyspnea, syncope, headache, dizziness, GI bleed, back pain, seizure, CVA, palpatations, mental health, musculoskeletal)? @ -Differential Abdominal Pain Men: Appendicitis, cholecystitis, diverticulosis, ischemic bowel, pancreatitis, hepatitis, UTI, gastroenteritis, AAA, incarcerated hernia, bowel obstruction, constipation, inflammatory bowel, hepatitis, peptic ulcer disease, splenic infarction, perforated viscus, testicular torsion, this is not meant to be an all-inclusive list EKG interpreted by me (3pts min.). @ -Completed at 1045 sinus tachycardia with a ventricular rate of 116, OR interval 182, QRS 107, QT 427, QTc 496. X-rays interpreted by me (1pt min.). @ -None done CT interpreted by me (1pt min.). @ -None done U/S interpreted by me (1pt. min.). @ -None done What testing was considered but not performed or refused? (CT, X-rays, U/S, labs)? Why? @ -None What meds were considered but not given or refused? Why? @ -None Did you discuss the management of the patient with other professionals (professionals i.e. DrJames, PA, SPLITTING MACHINE OPERATOR, lab, RT, psych nurse, social media sr strategy manager, hospice home care coordinator, teacher, identification officer, showcase trimmer)? Give summary @ -i spoke with Dr. Skaggs, who has agreed to admit the patient with neurology on consult. Was smoking cessation discussed for >3mins.? @ -No Was critical care preformed (if so, how long)? @ -No Were there social determinants of health that impacted care today? How? (Homelessness, low income, unemployed, alcoholism, drug addiction, transportation, low edu. Level, literacy, decrease access to med. care, [place] [facility], re hab)? @ -No Was there de-escalation of care discussed even if they declined (Discuss DNR or withdrawal of care, Hospice)? DNR status @ -No What co-morbidities impacted this encounter? (DM, HTN, Smoking, COPD, CAD, Cancer, CVA, ARF, Chemo, Hep., AIDS, mental health diagnosis, sleep apnea, morbid obesity)? @ -CVA Was patient admitted / discharged? Hospital course, mention meds given and route, prescriptions, significant lab abnormalities, going to OR and other pertinent info. @ -Admitted. 64-year-old male presenting via EMS for complaints of abdominal pain and potential TIA. Additionally patient is evaluated for abdominal pain and after family returns to bedside discussion is concerning for potential TIA this morning is that when he woke up with the left side of his body appeared to be weaker than normal. On my evaluation patient has good magazine publisher strength on the left-hand side is able to hold up his left leg and range of motion is intact. There are no new neurological deficits on my physical examination. CT imaging of the brain is unchanged as compared to compared of MRI and CT from 07/01/2022. Abdominal CT reveals no acute process. Labs reveal mild leukocytosis, CMP is unremarkable. With concern for potential TIA from family's history at bedside patient will be admitted to internal medicine with neurology on consult for further evaluation. Case discussed with my attending Dr. Draper. Undiagnosed new problem with uncertain prognosis? @ -No Drug Therapy requiring intensive monitoring for toxicity (Heparin, Nitro, Insulin, Cardizem)? @ -No Were any procedures done? @ -No Diagnosis/symptom? @ - left sided weakness, potential TIA Acute, or Chronic, or Acute on Chronic? @ -acute Uncomplicated (without systemic symptoms) or Complicated (systemic symptoms)? @ -complicated Side effects of treatment? @ -No Exacerbation, Progression, or Severe Exacerbation? @ -No Poses a threat to life or bodily function? How? (Chest pain, [place], GA, pneumonia, PE, COPD, DKA, ARF, appy, cholecystitis, CVA, Diverticulitis, Homicidal, Suicidal, threat to staff... and all critical care pts) @ -No - Lab Data Result diagrams: 04/29/25 11:00 04/29/25 11:00 Lab Results 04/29/25 04/29/25 04/29/25 Range/Units 11:00 11:00 11:00 WBC 13.40 H (4.50-10.00) 10*3/uL RBC 5.62 H (4.40-5.60) 10*6/uL Hgb 17.4 H (13.0-17.0) g/dL Hct 50.2 H (39.6-50.0) % MCV 89.3 (80.0-97.0) fL MCH 31.0 (27.0-32.0) pg MCHC 34.7 (32.0-37.0) g/dL Plt Count 219 (140-440) 10*3/uL MPV 9.8 (9.5-12.2) fL Immature Gran % (Auto) 0.1 % Neutrophils % 68.5 % Lymphocytes % 17.2 % Monocytes % 10.9 % Eosinophils % 2.8 % Basophils % 0.5 % Immature Gran # 0.02 (0.00-0.04) 10*3/uL Neutrophils # 9.16 H (1.80-7.70) 10*3/uL Lymphocytes # 2.31 (0.90-5.00) 10*3/uL Monocytes # 1.46 H (0.20-1.00) 10*3/uL Eosinophils # 0.38 H (0.04-0.35) 10*3/uL Basophils # 0.07 (0.00-0.10) 10*3/uL Sodium 143 (137-145) mmol/L Potassium 4.2 (3.5-5.1) mmol/L Chloride 106 (98-107) mmol/L Carbon Dioxide 26 (22-30) mmol/L Anion Gap 11 mmol/L BUN 13 (9-20) mg/dL Creatinine 0.71 (0.66-1.25) mg/dL Est GFR (CKD-EPI)AfAm >90 (>60 ml/min/1.73 sqM) Est GFR (CKD-EPI)NonAf >90 (>60 ml/min/1.73 sqM) Glucose 109 H (74-99) mg/dL Lactic Ac Sepsis Rflx Plasma Lactic Acid Chan 2.2 H* (0.7-2.0) mmol/L Calcium 9.9 (8.4-10.2) mg/dL Total Bilirubin 0.8 (0.2-1.3) mg/dL AST 35 (17-59) U/L ALT 43 (4-49) U/L Alkaline Phosphatase 94 (38-126) U/L Troponin I (0.000-0.034) ng/mL Total Protein 7.7 (6.3-8.2) g/dL Albumin 4.6 (3.5-5.0) g/dL Amylase 65 (30-110) U/L Lipase 182 (23-300) U/L 04/29/25 04/29/25 Range/Units 11:00 11:40 WBC (4.50-10.00) 10*3/uL RBC (4.40-5.60) 10*6/uL Hgb (13.0-17.0) g/dL Hct (39.6-50.0) % MCV (80.0-97.0) fL MCH (27.0-32.0) pg MCHC (32.0-37.0) g/dL Plt Count (140-440) 10*3/uL MPV (9.5-12.2) fL Immature Gran % (Auto) % Neutrophils % % Lymphocytes % % Monocytes % % Eosinophils % % Basophils % % Immature Gran # (0.00-0.04) 10*3/uL Neutrophils # (1.80-7.70) 10*3/uL Lymphocytes # (0.90-5.00) 10*3/uL Monocytes # (0.20-1.00) 10*3/uL Eosinophils # (0.04-0.35) 10*3/uL Basophils # (0.00-0.10) 10*3/uL Sodium (137-145) mmol/L Potassium (3.5-5.1) mmol/L Chloride (98-107) mmol/L Carbon Dioxide (22-30) mmol/L Anion Gap mmol/L BUN (9-20) mg/dL Creatinine (0.66-1.25) mg/dL Est GFR (CKD-EPI)AfAm (>60 ml/min/1.73 sqM) Est GFR (CKD-EPI)NonAf (>60 ml/min/1.73 sqM) Glucose (74-99) mg/dL Lactic Ac Sepsis Rflx Y Plasma Lactic Acid Chan (0.7-2.0) mmol/L Calcium (8.4-10.2) mg/dL Total Bilirubin (0.2-1.3) mg/dL AST (17-59) U/L ALT (4-49) U/L Alkaline Phosphatase (38-126) U/L Troponin I <0.012 (0.000-0.034) ng/mL Total Protein (6.3-8.2) g/dL Albumin (3.5-5.0) g/dL Amylase (30-110) U/L Lipase (23-300) U/L Disposition Clinical Impression: Weakness of left side of body Disposition: ADMITTED IP TO THIS [facility] Condition: Stable Decision to Admit Reason: Admit from EC Decision Date: 04/29/25 Decision Time: 14:45
[2025-04-29 11:20] LABS: Basophils # (A) 0.07 10*3/uL (0.00-0.10); Basophils % (A) 0.5 %; Eosinophils # (A) 0.38 10*3/uL (0.04-0.35); Eosinophils % (A) 2.8 %; HCT 50.2 % (39.6-50.0); HGB 17.4 g/dL (13.0-17.0); Lymphocytes # (A) 2.31 10*3/uL (0.90-5.00); Lymphocytes % (A) 17.2 %; MCH 31.0 pg (27.0-32.0); MCHC 34.7 g/dL (32.0-37.0); MCV 89.3 fL (80.0-97.0); Monocytes # (A) 1.46 10*3/uL (0.20-1.00); Monocytes % (A) 10.9 %; Neutrophils # (A) 9.16 10*3/uL (1.80-7.70); Neutrophils % (A) 68.5 %; Platelet Count 219 10*3/uL (140-440); RBC 5.62 10*6/uL (4.40-5.60); RDW 13.5 % (11.5-14.5); WBC 13.40 10*3/uL (4.50-10.00)
[2025-04-29 11:29] LABS: ALT 43 U/L (4-49); African American GFR (CKD) >90 (>60 ml/min/1.73 sqM); Albumin 4.6 g/dL (3.5-5.0); Amylase 65 U/L (30-110); Anion Gap 11 mmol/L; Blood Urea Nitrogen 13 mg/dL (9-20); Calcium 9.9 mg/dL (8.4-10.2); Carbon Dioxide 26 mmol/L (22-30); Chloride 106 mmol/L (98-107); Glucose 109 mg/dL (74-99); Lipase 182 U/L (23-300); Non-African American GFR(CKD) >90 (>60 ml/min/1.73 sqM); Sodium 143 mmol/L (137-145); Total Protein 7.7 g/dL (6.3-8.2)
[2025-04-29 11:36] LABS: AST 35 U/L (17-59); Potassium 4.2 mmol/L (3.5-5.1)
[2025-04-29] MEDS: MORPHINE SULFATE 4 MG/ML SYRINGE IVP STA (11:36)
[2025-04-29 11:37] LABS: Alkaline Phosphatase 94 U/L (38-126)
--- NOTE | 2025-04-29 12:36 | CT ---
EXAMINATION TYPE: CT abdomen pelvis w con CT DLP: 1377.8 mGycm, Automated exposure control for dose reduction was used. DATE OF EXAM: 04/29/2025 12:27 PM COMPARISON: None CLINICAL INDICATION:Male, 64 years old with history of right abdominal pain; rt sided abdominal pain TECHNIQUE: Standard CT of the abdomen and pelvis following the administration of 100 cc of Isovue 3 00 IV contrast material. Coronal and sagittal reformats were performed. FINDINGS: LOWER CHEST: Right lower lobe dependent subsegmental atelectasis. ABDOMEN LIVER: Unremarkable GALLBLADDER AND BILE DUCTS: Unremarkable. PANCREAS: Unremarkable. SPLEEN: Unremarkable. ADRENAL GLANDS: Unremarkable. KIDNEYS AND URETERS: No evidence of hydronephrosis or renal calculus. The kidneys enhance symmetrical ly. Contrast is demonstrated within both collecting systems on the delayed phase. No hydroureter or u reteral calculus. PELVIS BLADDER: Unremarkable REPRODUCTIVE: Coarse calcifications of the prostate gland are identified. ABDOMEN & PELVIS STOMACH AND BOWEL: Small hiatal hernia, duodenum is unremarkable. No focal bowel wall thickening or s urrounding inflammatory changes. Postsurgical changes from suggested appendectomy. Metallic possible surgical clip within the cecum. No evidence of bowel obstruction. PERITONEUM: No evidence of pneumoperitoneum or free fluid. VASCULATURE: Moderate atherosclerotic calcifications are present throughout the abdominal aorta and i ts branches. No evidence of aortic aneurysm. Ectasia of the abdominal aorta measuring to 2.8 cm. Few pelvic phleboliths. MUSCULOSKELETAL: No acute osseous abnormalities. DISH of the thoracic spine. LYMPH NODES: No evidence for lymphadenopathy. SOFT TISSUE/ABDOMINAL WALL: Small fat filled umbilical hernia. IMPRESSION: No CT evidence for acute abdominal/pelvic process. [facility], , 04/29/2025 12:34 PM
--- NOTE | 2025-04-29 14:07 | CT ---
EXAMINATION TYPE: CT brain wo con CT DLP: 1171.9 mGycm, Automated exposure control for dose reduction was used. DATE OF EXAM: 04/29/2025 1:55 PM COMPARISON: CT brain and CT head neck 05/23/2022, MR brain 05/24/2022 CLINICAL INDICATION:Male, 64 years old with history of confusion, weakness, Pt has limited verbal com munication due to a stroke in the past. Confusion, weakness TECHNIQUE: Brain: Multiple axial CT images of the brain were obtained without IV contrast. . Coronal and sagitta l reformats reviewed. FINDINGS: Brain: Extra-axial spaces: No abnormal extra-axial fluid collections. Ventricular system: Slight ex vacuo dilatation of the left lateral ventricle. Cerebral parenchyma: No acute intraparenchymal hemorrhage or mass effect. Encephalomalacia within th e left MCA territory redemonstrated from prior ischemic injury. This involves the left frontal, parie anna marie, and temporal lobes. Additional involvement of the left conde radiata and centrum semiovale The remaining elena-white junction is well differentiated. Scattered hypoattenuating areas are seen within the periventricular white matter. Cerebellum: Unremarkable. Mass effect: No evidence of midline shift. Intracranial vasculature: Atherosclerotic calcifications of the intracranial vessels. Soft tissues: Normal. Calvarium/osseous structures: No depressed skull fracture. Paranasal sinuses and mastoid air cells: Mild scattered paranasal sinus disease. The mastoid air cell s are clear. Visualized orbits: Orbital contents are intact. IMPRESSION: 1. No acute intracranial process. 2. Redemonstration of large region of encephalomalacia involving the left MCA territory from prior is chemia. 3. Nonspecific white matter changes, likely secondary to chronic small vessel ischemic disease. [facility], , 04/29/2025 2:05 PM
[2025-04-29] MEDS ORDERED: NALOXONE 0.4 MG/ML 1 ML VIAL IV PRN (14:44)
[2025-04-29] MEDS: SODIUM CHLORIDE 0.9% 1,000 ML IV SCH (19:55)
[2025-04-29] MEDS: traMADol 50 MG TAB PO PRN (21:05)
[2025-04-29] MEDS: ATORVASTATIN 80 MG TAB PO SCH (21:06)
[2025-04-29 21:44] LABS: Bilirubin,Urine Negative (Negative); Blood,Urine Small (Negative); Color,Urine Colorless; Glucose,Urine (UA) Negative (Negative); Ketones,Urine Negative (Negative); Leukocyte Esterase,Urine Negative (Negative); Nitrite,Urine Negative (Negative); PH, Urine 6.5 (5.0-8.0); Protein,Urine Negative (Negative); RBC,Urine 4 /hpf (0-5); Specific Gravity,Urine 1.021 (1.001-1.035); Urobilinogen,Urine <2.0 mg/dL (<2.0); WBC,Urine 1 /hpf (0-5)
--- NOTE | 2025-04-30 | CT ---
EXAM: CT Chest Without Intravenous Contrast CLINICAL HISTORY: Increased WBC, tachycardia TECHNIQUE: Axial computed tomography images of the chest without intravenous contrast. CTDI is 10.4 mGy and DLP is 452.7 mGy-cm. This CT exam was performed using one or more of the following dose reduction techniques: automated exposure control, adjustment of the mA and/or kV according to patient size, and/or use of iterative reconstruction technique. COMPARISON: No relevant prior studies available. FINDINGS: Artifacts: Scatter artifact likely related to patient's arm position. Limitations: There is diffuse respiratory artifact, which degrades image quality throughout the examination. Lungs: Centrilobular emphysema noted involving both upper lobes with hyperexpansion of the upper lobes. There is dependent subsegmental changes in the posterior lower lobes, [id number]-left. No mass. No consolidation. Pleural space: Unremarkable. No significant effusion. No pneumothorax. Heart: The cardiac chambers are upper normal limits. No pericardial effusion. At least moderate coronary artery calcification. Mediastinum: Hiatal hernia. There is mild concentric mucosal prominence of the thoracic esophagus. No obstruction or paraesophageal inflammatory changes. Bones/joints: No obvious acute osseous abnormality. Evaluation of the ribs is somewhat limited by respiratory artifact. Dysmorphic changes multiple posterolateral left ribs suggests prior traumatic injury. Chronic anterior wedging noted at T3, T5 through T7, resulting in accentuated kyphosis. Soft tissues: Unremarkable. Vasculature: Diffuse atherosclerotic changes involving the abdominal aorta. There is a saccular aneurysm extending along the posterolateral aspect of the mid descending aorta, with the aneurysm estimated at 2 x 3. 4 cm. The diameter of the aorta at this level, including the aneurysm measures 4.5 x 4.7 cm. No obvious acute periaortic abnormality. Lymph nodes: Unremarkable. No enlarged lymph nodes. IMPRESSION: 1. Centrilobular emphysema noted involving both upper lobes with hyperexpansion of the upper lobes. There is dependent subsegmental changes in the posterior lower lobes, [id number]-left. Suspect subsegmental atelectasis. Infection at the right lung base is considered less likely but difficult to entirely exclude. No pleural effusion or pneumothorax. 2. Diffuse atherosclerotic changes involving the abdominal aorta. There is a saccular aneurysm extending along the posterolateral aspect of the mid descending aorta, with the aneurysm estimated at 2 x 3.4 cm. The diameter of the aorta at this level, including the aneurysm measures 4.5 x 4.7 cm. No obvious acute periaortic abnormality. No prior imaging available. If this is a new finding, recommend dedicated CTA or MRA evaluation of the aorta with nonemergent Cardiothoracic surgery consultation for potential surveillance.
[2025-04-30] MEDS: IPRATROPIUM-ALBUTEROL 3 ML NEB INHALATION SCH (07:38)
[2025-04-30] MEDS: amLODIPine 10 MG TAB PO SCH (08:27)
[2025-04-30 12:00] LABS: Basophils # (A) 0.06 10*3/uL (0.00-0.10); Basophils % (A) 0.4 %; Eosinophils # (A) 0.15 10*3/uL (0.04-0.35); Eosinophils % (A) 1.0 %; HCT 47.4 % (39.6-50.0); HGB 16.4 g/dL (13.0-17.0); Lymphocytes # (A) 2.14 10*3/uL (0.90-5.00); Lymphocytes % (A) 14.1 %; MCH 30.7 pg (27.0-32.0); MCHC 34.6 g/dL (32.0-37.0); MCV 88.6 fL (80.0-97.0); Monocytes # (A) 1.52 10*3/uL (0.20-1.00); Monocytes % (A) 10.0 %; Neutrophils # (A) 11.29 10*3/uL (1.80-7.70); Neutrophils % (A) 74.2 %; Platelet Count 246 10*3/uL (140-440); RBC 5.35 10*6/uL (4.40-5.60); RDW 13.4 % (11.5-14.5); WBC 15.20 10*3/uL (4.50-10.00)
[2025-04-30 12:05] LABS: ALT 34 U/L (4-49); AST 25 U/L (17-59); African American GFR (CKD) >90 (>60 ml/min/1.73 sqM); Albumin 4.0 g/dL (3.5-5.0); Albumin/Globulin Ratio 1.5; Alkaline Phosphatase 96 U/L (38-126); Anion Gap 10 mmol/L; Blood Urea Nitrogen 13 mg/dL (9-20); Calcium 9.0 mg/dL (8.4-10.2); Carbon Dioxide 26 mmol/L (22-30); Chloride 105 mmol/L (98-107); Globulin 2.6 g/dL; Glucose 103 mg/dL (74-99); Non-African American GFR(CKD) >90 (>60 ml/min/1.73 sqM); Potassium 4.1 mmol/L (3.5-5.1); Sodium 141 mmol/L (137-145); Total Protein 6.6 g/dL (6.3-8.2)
[2025-04-30] MEDS ORDERED: ALBUTEROL NEBULIZED 2.5 MG/3 ML INHALATION PRN (14:32)
--- NOTE | 2025-04-30 15:17 | P.CNNES ---
History of Present Illness Consult date: 04/30/25 Requesting physician: Ghada Molina Reason for Consult: possible TIA, hx left sided weakness has resolved History of Present Illness: This is a 64-year-old gentleman with history of stroke with residual right hemiparesis and severe aphasia who presents the emergency department because of abdominal pain and transient weakness over the left side. History is obtained from medical record since patient is unable to provide because of his severe aphasia. It appears the patient family team stated that the patient has been complaining of abdominal pain intermittently over the past few days. Seems that also had left-sided weakness yesterday morning in which she was having pain with movement of the left arm and leg. No diarrhea or vomiting or recent falls or injuries per the note. Some of the workup during this hospital visit consisted of: Initial white blood cells 13K-->15K. Initial plasma lactic acid vein is 2.2 and repeat is 1.3 I reviewed the rest of the lab work CT of the head is reported as no acute intracranial process. Redemonstration of large encephalomalacia involving the left MCA from prior ischemia. I personally reviewed the CT and agree with the report. CT of the chest is reported as centrilobular emphysema noted involving both upper lobes with hyperexpansion of the upper lobe. There is dependent subsegmental changes in the posterior lower lobe, right greater than left. Suspect separate segmental atelectasis. Infection at the right lung base is considered less likely but difficult to entirely exclude. Diffuse atherosclerotic changes involving the abdominal aorta. There is saccular aneurysm extending along the posterior lateral aspect of the mid descending aorta with aneurysm estimated 2 x 3 to 3. 4 m. The diameter of the aorta at this level including aneurysm measuring 4.5 x 4.7. Review of Systems Limited but as per HPI. Past Medical History Additional Past Medical History / Comment(s): CVA 2020 History of Any Multi-Drug Resistant Organisms: Unobtainable Past Surgical History: Unable to Obtain Past Anesthesia/Blood Transfusion Reactions: No Reported Reaction Past Psychological History: Unable to Obtain Smoking Status: Current every day smoker, Unknown if ever smoked Past Alcohol Use History: None Reported Past Drug Use History: None Reported Medications and Allergies Home Medications Medication Instructions Recorded Confirmed Type Atorvastatin [Lipitor] 80 mg PO HS 30 Days #30 tab 05/26/22 04/29/25 Rx amLODIPine [Norvasc] 10 mg PO DAILY 30 Days #30 tab 05/26/22 04/29/25 Rx lisinopriL 40 mg PO DAILY 04/29/25 04/29/25 History Allergies Allergy/AdvReac Type Severity Reaction Status Date / Time No Known Allergies Allergy Verified 04/29/25 18:32 Physical Examination - Vital Signs Vital Signs: Vital Signs Temp Pulse Pulse Resp BP BP Pulse Ox 04/30/25 12:19 80 04/30/25 12:07 80 04/30/25 07:47 84 04/30/25 07:38 80 96 04/30/25 07:07 97.6 F 101 H 18 138/88 95 04/30/25 00:55 114/75 04/30/25 00:27 98.1 F 105 H 18 98/59 94 L 04/29/25 18:05 98.2 F 111 H 20 121/75 94 L 04/29/25 17:48 92 18 111/76 95 Intake and Output 04/30/25 04/30/25 04/30/25 06:59 14:59 22:59 Output Total 500 Balance -500 Output: Urine 500 Other: Voiding Method Diaper Incontinent External Catheter General: Laying in bed and does not appear in acute distress. Neuro: Very limited because of severe expressive aphasia. Patient is following commands by mimicking. Is tracking throughout the room. No Facial weakness. Motor: Left is 5/5. Has significant weakness over the right (worse on right upper > lower). Is able move the right upper maybe 2/5 while lower is 3/5. Has brisk reflex over the right upper extremity. Plantar: Upgoing toe over the right. Results - Laboratory Findings CBC and BMP: 04/30/25 10:43 04/30/25 10:43 Abnormal Lab Findings: Abnormal Labs 04/29/25 04/29/25 04/29/25 11:00 11:00 11:00 WBC 13.40 H RBC 5.62 H Hgb 17.4 H Hct 50.2 H Neutrophils # 9.16 H Monocytes # 1.46 H Eosinophils # 0.38 H Glucose 109 H Plasma Lactic Acid Chan 2.2 H* Urine Blood 04/29/25 04/30/25 04/30/25 21:25 10:43 10:43 WBC 15.20 H RBC Hgb Hct Neutrophils # 11.29 H Monocytes # 1.52 H Eosinophils # Glucose 103 H Plasma Lactic Acid Chan Urine Blood Small H Assessment and Plan Assessment: This is a 64-year-old gentleman with history of stroke over the left MCA with residual severe expressive aphasia as well as right hemiparesis worse on the right upper than the lower who presents emergency department because of intermittent abdominal pain and transient left sided weakness. Per the ED team family notified them that he was having pain moving the left upper and lower extremity. Today strength over the left side is normal. The CT head is unremarkable for any acute process. CT of the chest is reported as centrilobular emphysema noted involving both upper lobes with hyperexpansion of the upper lobe. There is dependent subsegmental changes in the posterior lower lobe, right greater than left. Suspect separate segmental atelectasis. Infection at the right lung base is considered less likely but difficult to entirely exclude. Diffuse atherosclerotic changes involving the abdominal aorta. There is saccular aneurysm extending along the posterior lateral aspect of the mid descending aorta with aneurysm estimated 2 x 3 to 3. 4 m. The diameter of the aorta at this level including aneurysm measuring 4.5 x 4.7 Reported transient left-sided weakness with pain: Unsure exact etiology. Possible left sided weakness was due to pain and unsure if any association to his abdominal pain. Emphysema over the CT of the chest Also there is atherosclerotic changes of abdominal aorta on the CT Saccular aneurysm of the mid ascending aorta Leukocytosis of unknown etiology History of left MCA stroke with residual right hemiparesis and severe expressive aphasia Plan: I ordered carotid duplex, MRI of the brain, 2D echo, lipid panel Recommend further evaluation by the primary attending regarding his abdominal pain and consider CT angiography of the chest abdomen. Recommend GI or vascular consultation I started the patient on aspirin 81 mg daily. Currently on Lipitor 80 mg nightly. Continue neurochecks Cardiac monitoring Will defer the rest of the medical management to primary team Thank you for the consultation Dr. Back resume neurology service tomorrow a.m. Time with Patient: Greater than 30
[2025-04-30] MEDS: ASPIRIN 81 MG PO SCH (16:43)
--- NOTE | 2025-04-30 17:02 | US ---
EXAMINATION TYPE: US carotid duplex BILAT DATE OF EXAM: 04/30/2025 COMPARISON: NONE CLINICAL INDICATION: Male, 64 years old with history of stroke. left arm weakness; stroke Additional History: .... TECHNIQUE: Grayscale, color Doppler and spectral Doppler evaluation of the bilateral carotid systems and vertebral arteries. Indirect Doppler criteria was utilized. FINDINGS: EXAM MEASUREMENTS: RIGHT: Peak Systolic Velocity (PSV) cm/sec ----- Right CCA: 85.1 ----- Right ICA: 68.9 ----- Right ECA: 122 ICA/CCA ratio: 0.8 RIGHT: End Diastole cm/sec ----- Right CCA: 20.1 ----- Right ICA: 24.7 ----- Right ECA: 7.38 LEFT: Peak Systolic Velocity (PSV) cm/sec ----- Left CCA: 58 ----- Left ICA: 60.3 ----- Left ECA: 116 ICA/CCA ratio: 1.0 LEFT: End Diastole cm/sec ----- Left CCA: 11.5 ----- Left ICA: 25.2 ----- Left ECA: 14.9 VERTEBRALS (direction of flow): Right Vertebral: Antegrade Left Vertebral: Antegrade Rhythm: Normal ENDLESS STEAMER TENDER NOTES: No significant stenosis seen Color Doppler imaging shows patency with blood flow throughout the carotid artery. Spectral waveforms are within normal limits. IMPRESSION: Right: Less than 50% stenosis of the carotid bifurcation. Left: Less than 50% stenosis of the carotid bifurcation. Criteria for Assigning % of Stenosis / Diameter reduction (Estimation based on the indirect measurements of the internal carotid artery velocities (ICA PSV). 1. Normal (no stenosis)=ICA PSV < 180 cm/s: ratio < 2.0: ICA EDV<40 cm/s. 2. Less than 50% stenosis=ICA PSV < 180 cm/s: ratio < 2.0: ICA EDV<40 cm/s. 3. 50 to 69% stenosis=ICA PSV of 180 to 230 cm/s: ration 2.0 ? 4.0: ICA EDV 40-100 cm/s. PSV 125-180 cm/sec and ICA/CCA PSV Ratio ? 2.0 is also consistent with 50-69% stenosis 4. Greater than 70% stenosis to near occlusion= ICA PSV > 230 cm/s: ratio > 4.0: ICA EDV > 100 cm/s. 5. Near occlusion= ICA PSV velocities may be low or undetectable: variable ratio and ICA EDV. 6. Total occlusion=unable to detect flow. [facility], , 04/30/2025 5:00 PM
[2025-05-01 00:54] LABS: Cholesterol 119.00 mg/dL (0.00-200.00); HDL Cholesterol 45.70 mg/dL (40.00-60.00); LDL Cholesterol,Calculated 51.1 mg/dL (0.0-131.0); Triglycerides 111.00 mg/dL (0.00-149.00); VLDL Calculation 22.20 mg/dL (5.00-40.00)
[2025-05-01 07:53] LABS: HCT 46.0 % (39.6-50.0); HGB 14.9 g/dL (13.0-17.0); MCH 29.6 pg (27.0-32.0); MCHC 32.4 g/dL (32.0-37.0); MCV 91.3 FL (80.0-97.0); NRBC Per 100 WBC 0 X 10*3/uL (0.00-0.01); Platelet Count 213 X 10*3/uL (140-440); RBC 5.04 X 10*6/uL (4.40-5.60); RDW 13.8 % (11.5-14.5); WBC 14.84 X 10*3/uL (4.50-10.00)
[2025-05-01 08:02] LABS: ALT 29 U/L (10-49); AST 23 U/L (14-35); Albumin 3.8 g/dL (3.8-4.9); Albumin/Globulin Ratio 1.73 Ratio (1.60-3.17); Alkaline Phosphatase 84 U/L (41-126); Anion Gap 9.70 mmol/L (4.00-12.00); BUN/Creat Ratio 17.38 Ratio (12.00-20.00); Blood Urea Nitrogen 13.9 mg/dL (9.0-27.0); Calcium 8.6 mg/dL (8.7-10.3); Carbon Dioxide 22.3 mmol/L (21.6-31.8); Chloride 108 mmol/L (96-109); Globulin 2.2 g/dL (1.6-3.3); Glucose 93 mg/dL (70-110); Potassium 4.2 mmol/L (3.5-5.5); Sodium 140 mmol/L (135-145); Total Protein 6.0 g/dL (6.2-8.2)
[2025-05-01 12:38] LABS: Basophils # (A) 0.05 X 10*3/uL (0.00-0.10); Basophils % (A) 0.3 %; Eosinophils # (A) 0.57 X 10*3/uL (0.04-0.35); Eosinophils % (A) 3.8 %; Immature Grans, Automated 0.30 %; Lymphocytes # (A) 2.37 X 10*3/uL (0.90-5.00); Lymphocytes % (A) 16.0 %; Monocytes # (A) 1.52 X 10*3/uL (0.20-1.00); Monocytes % (A) 10.2 %; Neutrophils # (A) 10.28 X 10*3/uL (1.80-7.70); Neutrophils % (A) 69.4 %
--- NOTE | 2025-05-01 12:42 | CA ---
Transthoracic Echo Report Name: Juan Walton Age: 64 Gender: M : 1960 Exam Date: 05/01/2025 10:12 Exam Location: [facility] Ht (in): 70 Wt (lb): 225 Ordering Physician: Ammon Cannon MD Attending/Referring Phys: Phlebotomist Medical Lab Assistant Randi Clarke RDCS Procedure CPT: Indications: stroke Cardiac Hx: Technical Quality: Fair Contrast 1: Total Dose (mL): Contrast 2: Total Dose (mL): MEASUREMENTS (Male / Female) Normal Values 2D ECHO LV Diastolic Diameter PLAX 4.8 cm 4.2 - 5.9 / 3.9 - 5.3 cm LV Systolic Diameter PLAX 2.8 cm IVS Diastolic Thickness 1.0 cm 0.6 - 1.0 / 0.6 - 0.9 cm LVPW Diastolic Thickness 1.1 cm 0.6 - 1.0 / 0.6 - 0.9 cm LV Relative Wall Thickness 0.5 RV Internal Dim ED PLAX 3.1 cm LA Systolic Diameter LX 2.8 cm 3.0 - 4.0 / 2.7 - 3.8 cm LV Diastolic Volume MOD 4C 60.5 cm??? LV Systolic Volume MOD 4C 24.1 cm??? LV Ejection Fraction MOD 4C 60.1 % LV Cardiac Index MOD 4C 1278.6 cm???/min???m??? LV Diastolic Length 4C 7.0 cm LV Systolic Length 4C 5.6 cm LV Diastolic Volume MOD 2C 48.7 cm??? LV Systolic Volume MOD 2C 21.2 cm??? LV Ejection Fraction MOD 2C 56.4 % LV Cardiac Index MOD 2C 964.9 cm???/min???m??? LV Diastolic Length 2C 6.7 cm LV Systolic Length 2C 5.2 cm LA Volume 31.0 cm??? 18 - 58 / 22 - 52 cm??? LA Volume Index 13.6 cm???/m??? 16 - 28 cm???/m??? M-MODE Aortic Root Diameter MM 3.9 cm AV Cusp Separation MM 1.8 cm DOPPLER AV Peak Velocity 131.8 cm/s AV Peak Gradient 7.0 mmHg MV Area PHT 2.6 cm??? Mitral E Point Velocity 55.1 cm/s Mitral A Point Velocity 86.3 cm/s Mitral E to A Ratio 0.6 MV Deceleration Time 294.7 ms TR Peak Velocity 223.9 cm/s TR Peak Gradient 20.0 mmHg Right Ventricular Systolic Press 24.2 mmHg FINDINGS Left Ventricle Left ventricular ejection fraction is estimated at 55-60 %. Left ventricular cavity size normal. Left ventricular wall thickness normal. Normal left ventricular wall motion. Right Ventricle Normal right ventricular size. Right ventricular systolic pressure within normal limits. Right Atrium Normal right atrial size. No right atrial thrombus or mass seen. Left Atrium Normal left atrial size. No left atrial thrombus or mass present. Mitral Valve Structurally normal mitral valve. No mitral stenosis, regurgitation or prolapse. Aortic Valve Trileaflet aortic valve. No aortic valve stenosis or regurgitation. Tricuspid Valve Structurally normal tricuspid valve. Mild tricuspid regurgitation. Pulmonic Valve Pulmonic valve not well visualized. Pericardium No pericardial effusion. Aorta Mild aortic dilatation at the level of the sinuses of valsalva 39 mm CONCLUSIONS LVEF 55% No obvious regional wall motion abnormality Normal RV size and systolic function No significant valvular dysfunction RVSP estimated at 25 mmHg Mildly dilated aortic root measured at 3.9 cm Previewed by: Dr David Philip (Electronically Signed) Final Date: 01 May 2025 12:41
--- NOTE | 2025-05-01 13:51 | MR ---
EXAMINATION TYPE: MR brain wo con DATE OF EXAM: 05/01/2025 1:19 PM COMPARISON: 04/29/2025. CLINICAL INDICATION: Male, 64 years old with history of left sided weakness; PHH, Left sided weakness . TECHNIQUE: Multi planar, multi sequence imaging was performed through the brain including: T1, T2, In version recovery, Diffusion weighted imaging, and gradient echo imaging. No gadolinium was given. FINDINGS: Encephalomalacia within the left MCA territory from prior injury. The elena-white junctions, ventricular system, basal cisterns appear unremarkable. Scattered foci of high T2 signal intensity are seen within the periventricular white matter. Midline structures show n o abnormality. Diffusion-weighted imaging shows no evidence of restricted diffusion. The susceptibili ty weighted images do not reveal any evidence for micro-hemorrhage. The bone marrow signal is within normal limits. Paranasal sinuses and mastoid air cells: No significant paranasal sinus disease. Visualized orbits: Orbital contents are intact. IMPRESSION: 1. No evidence of intracranial mass or acute/subacute infarct. 2. Remote injury left MCA territory. 3. Nonspecific white matter changes, likely secondary to small vessel ischemic disease. 05/01/2025 1:47 PM,05/01/2025 1:19 PM,Rg Haskins,MR brain wo con,[id number] [facility], , 05/01/2025 1:48 PM
--- NOTE | 2025-05-01 21:22 | P.PN ---
Subjective Progress Note Date: 05/01/25 Patient was initially seen by Dr. Ammon Cannon. Please refer to his note for details. Patient is a 64-year-old male with transient left-sided weakness and pain. Patient is undergoing stroke workup. Patient also having some abdominal pain. Patient was seen for a follow-up. Patient is laying comfortably in the bed. Patient continues to have right hemiparesis from previous stroke. Some of the workup during this hospital visit consisted of: Initial white blood cells 13K-->15K. Initial plasma lactic acid vein is 2.2 and repeat is 1.3 I reviewed the rest of the lab work CT of the head is reported as no acute intracranial process. Redemonstration of large encephalomalacia involving the left MCA from prior ischemia. I personally reviewed the CT and agree with the report. CT of the chest is reported as centrilobular emphysema noted involving both upper lobes with hyperexpansion of the upper lobe. There is dependent subsegmental changes in the posterior lower lobe, right greater than left. Suspect separate segmental atelectasis. Infection at the right lung base is considered less likely but difficult to entirely exclude. Diffuse atherosclerotic changes involving the abdominal aorta. There is saccular aneurysm extending along the posterior lateral aspect of the mid descending aorta with aneurysm estimated 2 x 3 to 3. 4 m. The diameter of the aorta at t his level including aneurysm measuring 4.5 x 4.7. Objective - Vital Signs Vital signs: Vital Signs Temp 98.1 F 05/01/25 19:56 Pulse 99 05/01/25 19:56 Resp 16 05/01/25 19:56 BP 102/69 05/01/25 19:56 Pulse Ox 94 L 05/01/25 19:56 FiO2 Intake & Output 05/01/25 05/01/25 05/02/25 06:59 18:59 06:59 Intake Total 236 Output Total 900 1000 Balance -900 -764 Intake: Oral 236 Output: Urine 900 1000 Other: Voiding Method Diaper Diaper Incontinent Incontinent External Catheter External Catheter - Exam Patient is laying in the bed. Patient continues to have expressive aphasia and right spastic hemiplegia. Left arm and leg appears normal. - Labs CBC & Chem 7: 05/01/25 05:09 05/01/25 05:09 Labs: Abnormal Lab Results - Last 24 Hours (Table) 05/01/25 05/01/25 Range/Units 05:09 05:09 WBC 14.84 H (4.50-10.00) X 10*3/uL Immature Gran # 0.05 H (0.00-0.04) X 10*3/uL Neutrophils # 10.28 H (1.80-7.70) X 10*3/uL Monocytes # 1.52 H (0.20-1.00) X 10*3/uL Eosinophils # 0.57 H (0.04-0.35) X 10*3/uL Calcium 8.6 L (8.7-10.3) mg/dL Total Protein 6.0 L (6.2-8.2) g/dL Microbiology - Last 24 Hours (Table) 04/29/25 19:56 Blood Culture - Preliminary Blood Assessment and Plan Assessment: This is a 64-year-old gentleman with history of stroke over the left MCA with residual severe expressive aphasia as well as right hemiparesis worse on the right upper than the lower who presents emergency department because of intermittent abdominal pain and transient left sided weakness. Per the ED team family notified them that he was having pain moving the left upper and lower extremity. Today strength over the left side is normal. The CT head is unremarkable for any acute process. CT of the chest is reported as centrilobular emphysema noted involving both upper lobes with hyperexpansion of the upper lobe. There is dependent subsegmental changes in the posterior lower lobe, right greater than left. Suspect separate segmental atelectasis. Infection at the right lung base is considered less likely but difficult to entirely exclude. Diffuse atherosclerotic changes involving the abdominal aorta. There is saccular aneurysm extending along the posterior lateral aspect of the mid descending aorta with aneurysm estimated 2 x 3 to 3. 4 m. The diameter of the aorta at this level including aneurysm measuring 4.5 x 4.7 Reported transient left-sided weakness with pain: Unsure exact etiology. Possible left sided weakness was due to pain and unsure if any association to his abdominal pain. Emphysema over the CT of the chest Also there is atherosclerotic changes of abdominal aorta on the CT Saccular aneurysm of the mid ascending aorta Leukocytosis of unknown etiology History of left MCA stroke with residual right hemiparesis and severe expressive aphasia Plan: MRI of the brain revealed no evidence of intracranial mass or acute/subacute infarct. Remote injury left MCA territory. Nonspecific white matter changes, likely secondary to small vessel ischemic disease. I personally reviewed MRI, agree with the findings. 2D echo revealed LVEF 55 to 60%. Normal left atrial size. No left atrial thrombus or mass. Mildly dilated aortic root measured at 3.9 cm. Carotid Doppler revealed less than 50% stenosis bilateral carotid bifurcation. Antegrade flow in both vertebral arteries. Lipid panel with cholesterol 119, LDL 51, HDL 45, triglycerides 111. Continue Lipitor 80 mg daily for now. Recommend further evaluation by the primary attending regarding his abdominal pain and consider CT angiography of the chest abdomen. Recommend GI or vascular consultation Dr. Cannon has started the patient on aspirin 81 mg daily, and I seem to agree with that. Currently on Lipitor 80 mg nightly. Continue neurochecks Cardiac monitoring Will defer the rest of the medical management to primary team Neurologically clear for discharge. Will defer to IM to address abdominal issues. Please reconsult neurology if any concerns.
--- NOTE | 2025-05-02 01:24 | PN ---
PROGRESS NOTE SUBJECTIVE: A 64-year-old white male, possibly had another TIA or CVA, waiting for Neurology recommendations. He had a brain MRI, showed encephalomalacia with the left MCA territory for prior injury. No evidence of intracranial mass or subacute infarct, remote injury of the left MCA territory injury. OBJECTIVE: CARDIOVASCULAR: S1, S2. LUNGS: Transmitted upper airway sounds. HEMATOLOGY: Negative Homans. PSYCH: Fair mood and affect. ASSESSMENT AND PLAN: White count still high at 14.84. Prognosis is guarded. Continue current treatment, PT, OT. Brain MRI shows no stroke. Echo, chest CT, carotids are all pending. Please see further orders. Possible discharge home soon. MMODL / IJN: [id number] /
--- NOTE | 2025-05-03 16:52 | PN ---
PROGRESS NOTE SUBJECTIVE: A 64-year-old white male with prior stroke. He is improved. Similarly, he is doing better on his own. OBJECTIVE: CARDIOVASCULAR: S1, S2. LUNGS: Clear. GI: Soft. HEMATOLOGY: Negative Homans. PSYCH: Fair mood and affect. NEUROLOGIC: Alert and oriented x3. Pupils equal, round, reactive. VITAL SIGNS: Blood pressure 118/74, O2 96% on 2 L, temp 98, pulse 70s to 90s, respiratory rate 18. ASSESSMENT AND PLAN: Brain MRI shows encephalomalacia. No injury from prior stroke with no evidence of new stroke. He will be able to go home tomorrow. Follow up as outpatient. Came in with dehydration and altered mental status. He is improved at this point. Prognosis guarded. MMODL / IJN: [id number] /
--- NOTE | 2025-05-04 02:22 | PN ---
PROGRESS NOTE SUBJECTIVE: This is a 64-year-old white male, had a previous stroke. He is able to eat tonight himself with his left arm. States he is getting better. Remains on Norvasc, Zestril for hypertension, Lipitor for cholesterol, Ventolin p.r.n. for inhaler, tramadol p.r.n. for pain. Blood cultures are negative. We are planning on trying to get him home next day or 2. Brain MRI showed no hemorrhaging, no strokes. He has a remote injury in the left MCA. The patient appears to be stabilizing, possibly discharge him home. He appears to be improving. MMODL / IJN: [id number] /
[2025-05-04 07:39] VITALS: BMI 32.3
--- NOTE | 2025-05-05 04:04 | DS ---
DISCHARGE SUMMARY DISCHARGE MEDICATIONS: 1. Aspirin 81 mg daily. 2. He needs to take ventolin nebulizer t.i.d. not p.r.n. 3. Lipitor 80 daily. 4. Norvasc 10 mg daily. 5. Lisinopril 40 mg daily. CONDITION: Stable. PROGNOSIS: Guarded. Ambulate as tolerated. HOSPITAL COURSE: White male came in and still left-sided body possible TIA versus CVA. Neurology cleared him. He had a brain MRI, which was negative. Echo, which is decent. Carotid, which is decent. He improved over the next few days. He needs to scan his albuterol nebulizers t.i.d., return back to intermediate. Prognosis is guarded. Ambulate as tolerated. Condition stable. Cleared by Neurology. MMJUDYL / ERROLN: [id number] /
[2025-05-05 08:10] VITALS: BP 107/67; PULSE 75; RESP 18; TEMP 98.4
== END 2025-05-05 13:48 ==
LOC: EC 10:35 → 6NMEDSUR 14:45
PROVIDERS: ADMIT Family Medicine; ATTEND Family Medicine
DX: R10.9 Unspecified abdominal pain (principal); R53.1 Weakness; G93.89 Other specified disorders of brain; D72.829 Elevated white blood cell count, unspecified; E86.0 Dehydration; J43.2 Centrilobular emphysema; I69.320 Aphasia following cerebral infarction; I69.351 Hemiplegia and hemiparesis following cerebral infarction affecting right dominant side; I10 Essential (primary) hypertension; I70.0 Atherosclerosis of aorta; Z79.899 Other long term (current) drug therapy
CPT/HCPCS: 96361 ×3; 96374; 99285; 36415; 94640 ×2; 94760 ×2; 93005; 93306; 97530; 97162; 97112; 97535; 97167; 80061; 80053 ×3; 82150; 83605; 83690; 84484; 85025 ×3; 81001; 87040; 84145; 93880; 70450; 71250; 74177; 70551; G0378 ×7; J2270; Q9967